=== PATIENT | female | born 1935 | race Hispanic/Latino ===

== ENCOUNTER → 2020-12-01 12:20 | Outpatient (ROUT) | payer MEDICARE, SELFPAY ==
[2020-12-01 12:33] LABS: Add Manual Diff / Slide Review NO; Basophils Absolute Auto 0 /uL (0-100); Basophils Percent Auto 0.8 % (0-2); Eosinophils Absolute Auto 0 /uL (0-450); Eosinophils Percent Auto 0.7 % (2-4); Hemoglobin 13.6 g/dL (12.0-16.0); Lymphocytes Absolute Auto 1500 /uL (1100-4500); Lymphocytes Percent Auto 31.1 % (25-40); Mean Corpuscular Hemoglobin 32.6 PG (26-34); Monocytes Absolute Auto 300 /uL (0-900); Monocytes Percent Auto 6.5 % (3-14); Neutrophils Absolute Auto 2800 /uL (1500-7000); Neutrophils Percent Auto 60.9 % (50-75); Platelet Count 131 X10^3/uL (150-400); Red Blood Cell Count 4.16 X10^6/uL (4.0-5.2); White Blood Cell Count 4.7 X10^3/uL (4.5-11.0)
[2020-12-01 12:51] LABS: Alanine Aminotransferase 12 IU/L (<35); Albumin 4.2 g/dL (3.5-5.0); Albumin Globulin Ratio 1.4 (1.0-2.8); Alkaline Phosphatase 67 U/L (38-126); Aspartate Aminotransferase 23 IU/L (14-36); BUN Creatinine Ratio 23.5 (6-22); Bilirubin Total 0.7 mg/dL (0.2-1.3); Blood Urea Nitrogen 16 mg/dL (7-17); Calcium 9.8 mg/dL (8.4-10.2); Carbon Dioxide 32 mmol/L (22-32); Chloride 104 mmol/L (98-107); Cholesterol 196 mg/dL (140-199); Estimated Glomerular Filt Rate > 60.0 mL/min (>60); Globulin 2.9 g/dL (1.7-4.1); Glucose 98 mg/dL (80-110); HDL Cholesterol 45 mg/dL (40-60); HEMOLYSIS < 15 (0-50); LDL Cholesterol Calculated 126 mg/dL (<100); Potassium 4.2 mmol/L (3.4-5.1); Sodium 141 mmol/L (137-145); Total Protein 7.1 g/dL (6.3-8.2); Triglycerides 125 mg/dL (35-150)
== END ==
PROVIDERS: Visit Provider Student in an Organized Health Care Education/Training Program
DX: I67.89 Other cerebrovascular disease (principal)
CPT/HCPCS: 80053; 80061; 85025

== ENCOUNTER → 2021-01-05 09:21 | Outpatient (CLI) | payer MEDICARE, MEDICAID, SELFPAY ==
--- NOTE | 2021-01-05 09:33 | DI.ECHO.S_ITS ---
:Reason For Study: OTHER CEREBROVASCULAR DISEASE : :Ordering Physician: MITCHELL : :KAILASH Performed By: Brittney Hi : :Referring: KAILASH MEDRANO : + + Interpretation Summary The left ventricular cavity is small. Left ventricular systolic function appears normal without focal wall motion abnormalities. The ejection fraction is estimated to be 65-70%. Diastolic parameters suggest probable normal left ventricular diastolic function and normal filling pressures. The right ventricle is normal in size and function. The right ventricular systolic pressure is estimated to be at least 31 mmHg based on an estimated right atrial pressure of 3 mm Hg. The left atrial size is normal. Right atrial size is normal. There is no significant valvular heart disease. The aortic root is normal size. Procedure: A two-dimensional transthoracic echocardiogram with color flow and Doppler was performed. The study quality was technically adequate. There is no prior echocardiogram noted for this patient. The patient was in sinus rhythm with heart rates between 68-77 bpm during the exam. Left Ventricle: The left ventricular cavity is small. There is normal left ventricular wall thickness. Left ventricular systolic function appears normal without focal wall motion abnormalities. The ejection fraction is estimated to be 65-70%. Diastolic parameters suggest probable normal left ventricular diastolic function and normal filling pressures. Right Ventricle: The right ventricle is normal in size and function. Atria: The left atrial size is normal. Right atrial size is normal. There is no Doppler evidence for an interatrial shunt. Mitral Valve: The mitral valve is normal in structure and function. There is trace mitral regurgitation. Aortic Valve: The aortic valve is trileaflet. The aortic valve opens well. There is no aortic valve stenosis. No aortic regurgitation is present. Tricuspid Valve: The tricuspid valve is normal in structure and function. There is mild tricuspid regurgitation. The right ventricular systolic pressure is estimated to be at least 31 mmHg based on an estimated right atrial pressure of 3 mm Hg. Pulmonic Valve: The pulmonic valve leaflets are thin and pliable; valve motion is normal. There is no pulmonic valvular regurgitation. There is no significant valvular heart disease. Great Vessels: The aortic root is normal size. The dimensions of the ascending aorta are normal. The IVC is of normal diameter and collapses greater than 50% with a sniff. This suggests a low right atrial pressure of 3 mm Hg. Pericardium/ Pleura There is no pericardial effusion. There is no pleural effusion. MMode/2D Measurements & Calculations LVIDd: 3.6 cm LVOT diam: 2.0 cm LVIDs: 2.1 cm Ao root diam: 3.3 cm FS: 43.4 % asc Aorta Diam: 3.3 cm IVSd: 0.71 cm Ao Arch Diam (Prox Trans): 3.0 cm LVPWd: 1.0 cm LV allan. diameter/BSA (cm/m^2): 2.2 LV sys. diameter/BSA (cm/m^2): 1.3 LA A2 area: 16.1 cm2 RA long axis: 4.8 cm LA A4 area: 10.7 cm2 RA area: 13.8 cm2 LA length (vol): 4.6 cm RA vol: 33.4 ml LA vol: 31.8 ml RA : 20.5 ml/m2 LA vol index: 19.6 ml/m2 IVC diam: 1.8 cm RVD1 (basal): 2.2 cm TAPSE: 2.1 cm Doppler Measurements & Calculations Ao V2 max: 117.7 cm/sec LVOT Max Jadon: 82.0 cm/sec Ao V2 mean: 85.1 cm/sec LV V1 max P.7 mmHg Ao max P.5 mmHg LV V1 VTI: 19.3 cm Ao mean P.2 mmHg YUSUF(I,D): 2.2 cm2 Ao V2 VTI: 28.5 cm YUSUF(V,D): 2.3 cm2 sev ratio: 0.68 YUSUF indexed to BSA (cm^2/m^2): 1.4 MV E max jadon: 72.6 cm/sec TR max jadon: 263.7 cm/sec MV A max jadon: 70.7 cm/sec TR max P.8 mmHg MV E/A: 1.0 PA V2 max: 80.8 cm/sec Med Peak E' Jadon: 6.4 cm/sec PA V2 mean: 57.8 cm/sec E/E' med: 11.3 PA mean P.5 mmHg Lat Peak E' Jadon: 7.4 cm/sec PA pr(Accel): 25.9 mmHg E/E' lat: 9.8 E/e' average: 10.6 MV dec time: 0.17 sec SV(LVOT): 63.1 ml Reading Physician:05:19 PM
== END ==
PROVIDERS: PCP Student in an Organized Health Care Education/Training Program; Referring Provider Student in an Organized Health Care Education/Training Program; Visit Provider Student in an Organized Health Care Education/Training Program
DX: I67.89 Other cerebrovascular disease (principal); R60.9 Edema, unspecified; R06.01 Orthopnea
CPT/HCPCS: 93306

== ENCOUNTER → 2021-11-08 15:44 | Outpatient (CLI) | payer MEDICARE, MEDICAID, SELFPAY ==
--- NOTE | 2021-11-08 15:48 | DI.RAD.S_ITS ---
PROCEDURE: XR LUMBAR SPINE 2-3V INDICATIONS: acute midline low back pain with rt side sciatica TECHNIQUE: 3 views of the lumbar spine were acquired. COMPARISON: [facility], , XR SACRUM COCCYX MIN 2V, 11/08/2021, 15:56. FINDINGS: Bones: 5 [id number] vertebrae are present. Trace multilevel retrolisthesis. Multilevel disc degeneration, severe at the L5-S1 level where there is moderate facet joint arthropathy. Mild T12 compression fracture and no retropulsed fracture fragments identified. No suspicious bony lesions. Soft tissues: Overlying bowel gas pattern is normal. No suspicious soft tissue calcifications. IMPRESSION: 1. Mild T12 compression fracture of indeterminate age. If acute fracture is suspected, MRI could be performed for further characterization. 2. Multilevel spondylosis, with severe disc degeneration at the L5-S1 level. Dictated by: Riley Singh [facility] Interpreted: Andrzej Daniels MD on 11/08/2021 at 16:40 Transcribed by: FLORY on 11/08/2021 at 16:41 Approved by: Andrzej Daniels M.D. on 11/08/2021 at 17:32
--- NOTE | 2021-11-08 15:48 | DI.RAD.S_ITS ---
PROCEDURE: XR SACRUM COCCYX MIN 2V INDICATIONS: acute midline low back pain with rt side sciatica TECHNIQUE: 3 views of the sacrum and coccyx acquired. COMPARISON: , CR, XR LUMBAR SPINE 2-3V, 11/08/2021, 15:56. FINDINGS: Bones: No fractures or dislocations. No suspicious bony lesions. Degenerative disc and facet disease involves the inferior lumbar spine. Bones are osteopenic. Soft tissues: Visualized bowel gas pattern is normal. No suspicious soft tissue densities. 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 Dictated by: Riley Singh [facility] Interpreted: Andrzej Daniels MD on 11/08/2021 at 16:39 Transcribed by: FLORY on 11/08/2021 at 16:40 Approved by: Andrzej Daniels M.D. on 11/08/2021 at 17:32
== END ==
PROVIDERS: PCP Student in an Organized Health Care Education/Training Program; Referring Provider Student in an Organized Health Care Education/Training Program; Visit Provider Student in an Organized Health Care Education/Training Program
DX: M51.16 Intervertebral disc disorders with radiculopathy, lumbar region (principal)
CPT/HCPCS: 72100; 72220

== ENCOUNTER → 2022-08-15 16:55 | Outpatient (CLI) | payer MEDICARE, MEDICAID, SELFPAY ==
--- NOTE | 2022-08-15 | DI.MRI.S_ITS ---
PROCEDURE: MR HEAD/BRAIN WO/W CON INDICATIONS: scalp pain, paresthesia hx of cva TECHNIQUE: Noncontrast axial T1 spin echo, axial T2 fast spin echo, sagittal and axial FLAIR, coronal T2 fast spin echo, axial gradient echo, axial diffusion and ADC through the brain. After the administration of contrast, axial and coronal and sagittal T1 spin echo with fat saturation through the brain. COMPARISON: None. FINDINGS: Image quality: Excellent. CSF spaces: Basal cisterns are patent. No extra-axial fluid collections. Ventricles are normal in size and shape. Brain: No midline shift. No acute intracranial bleeds . There is a dural-based extra-axial low T2 signal intensity focus overlying the left superior paramedian parietal lobe which demonstrates postcontrast enhancement and dural tails measuring roughly 15 mm transverse. Within the right mid centrum semiovale there is a 10 mm diameter focus of low gradient echo signal intensity. There is cerebral volume loss for age. There is periventricular white matter chronic small vessel ischemic change. The brainstem appears normal. Diffusion-weighted images demonstrate no acute ischemic insults. No chronic ischemic insults. Normal intravascular flow voids are present. Skull and face: Calvarial marrow is normal in signal. Orbits appear normal. Sinuses: Sinuses and mastoids appear clear. IMPRESSION: 1. Volume loss and small vessel ischemic disease. 2. No acute process. No recent infarct. 3. 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 4. 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 No evidence of acute intracranial hemorrhage. Dictated by: Doris Bah M.D. on 08/16/2022 at 8:20 Approved by: Doris Bah M.D. on 08/16/2022 at 8:23
== END ==
PROVIDERS: PCP Student in an Organized Health Care Education/Training Program; Referring Provider Student in an Organized Health Care Education/Training Program; Visit Provider Student in an Organized Health Care Education/Training Program
DX: D32.0 Benign neoplasm of cerebral meninges (principal); R51.9 Headache, unspecified; R20.2 Paresthesia of skin; Z86.73 Personal history of transient ischemic attack (TIA), and cerebral infarction without residual deficits
CPT/HCPCS: 70553; A9579

== ENCOUNTER → 2025-03-20 10:43 | Outpatient (CLI) | payer MEDICARE, MEDICAID, SELFPAY ==
--- NOTE | 2025-03-20 10:46 | DI.RAD.S_ITS ---
PROCEDURE: XR CHEST 2V INDICATIONS: Other specified symptoms and signs involving the circulatory TECHNIQUE: 2 views of the chest were acquired. COMPARISON: None. FINDINGS: Surgical changes and devices: None. Lungs and pleura: Moderate diffuse increased prominence of the pulmonary vasculature. No evidence of focal consolidation. No evidence of pneumothorax. No evidence of pleural effusion. Mediastinum: Mediastinal contours are normal. Cardiomegaly. Atherosclerotic vascular calcifications. Bones and chest wall: No suspicious bony abnormalities. Soft tissues appear unremarkable. IMPRESSION: Cardiomegaly and moderate diffuse increased prominence of the pulmonary vasculature. Dictated by: John Ramos M.D. on 03/23/2025 at 2:57 Approved by: John Ramos M.D. on 03/23/2025 at 3:02
== END ==
PROVIDERS: PCP Family Medicine; Referring Provider Family Medicine; Visit Provider Family Medicine
DX: I51.7 Cardiomegaly (principal); R09.89 Other specified symptoms and signs involving the circulatory and respiratory systems
CPT/HCPCS: 71046